=== PATIENT | male | born 1955 | race Caucasian/White ===

== ENCOUNTER 2021-10-16 07:47 | Inpatient (IN) | payer MEDICARE, MEDICAID ==
[2021-10-16] VITALS: BP 133/67
[~2021-10-16] VITALS: Ht 190.5 cm; Wt 125.8 kg
[2021-10-16 08:14] LABS: BASO % 0.3 % (0.0-1.0); EOS # 0.1 10*3/uL (0.0-0.4); EOS % 0.8 % (1.0-4.0); LYMPH # 2.1 10*3/uL (1.3-4.4); LYMPH % 17.2 % (27.0-41.0); MEAN CELL VOLUME 104.8 fl (80.0-94.0); MEAN CORPUSCULAR HGB 33.8 pg (27.0-31.0); MEAN CORPUSCULAR HGB CONC 32.3 g/dl (33.0-37.0); MEAN PLATELET VOLUME 8.6 fl (9.6-12.3); MONO # 0.9 10*3/uL (0.1-1.0); MONO % 7.2 % (3.0-9.0); NEUT # 8.8 10*3/uL (2.3-7.9); NEUT % 73.5 % (47.0-73.0); PLATELET COUNT AUTOMATED 536 10*3/uL (130-400); RED BLOOD COUNT 3.34 10*6/uL (4.50-5.90); RED CELL DISTRI WIDTH 14.7 % (0-14.5)
[2021-10-16] MEDS ORDERED: SPIRIVA RESPIMAT4 GM INH (08:18)
[2021-10-16] MEDS ORDERED: 24 HOUR ALLERG9.9 ML INH (08:19)
[2021-10-16] MEDS ORDERED: ASPIRIN ADULT L81 M2 PO (08:20)
[2021-10-16] MEDS ORDERED: ATENOLOL50 M1 PO (08:20)
[2021-10-16] MEDS ORDERED: GOOD SENSE ALLE10 M2 PO (08:21)
[2021-10-16] MEDS ORDERED: ZETIA10 MG PO (08:21)
[2021-10-16] MEDS ORDERED: SIMVASTATIN40 MG PO (08:22)
[2021-10-16] MEDS ORDERED: VALSARTAN160 MG PO (08:22)
[2021-10-16 08:23] LABS: ABG BASE EXCESS 2.6 mmol/L (-2.0-2.0); ARTERIAL BLOOD GAS PH 7.398 (7.35-7.45); ARTERIAL BLOOD GAS PO2 138.4 (80-90)
[2021-10-16] MEDS ORDERED: VITAMIN D350 MCG PO (08:25)
[2021-10-16] MEDS ORDERED: SUPER BETA PROSTATE (08:27)
[2021-10-16] MEDS ORDERED: ONE-DAILY MULT1 EAC1 PO (08:28)
[2021-10-16] MEDS ORDERED: GLUCOSAMINE CO1 EAC1 PO (08:28)
[2021-10-16 08:32] VITALS: BP 137/87
[2021-10-16 08:34] LABS: ALKALINE PHOSPHATASE 190 U/L (45-117); BUN 11 mg/dl (7-24); CHLORIDE 98 mmol/L (98-107); CREATININE 0.97 mg/dL (0.70-1.30); POTASSIUM 4.8 mmol/L (3.5-5.1); SGOT/AST 44 IU/L (3-35); SGPT/ALT 53 U/L (12-78); SODIUM 133 mmol/L (136-145); TOTAL PROTEIN 7.5 gm/dL (6.4-8.2)
[2021-10-16 11:06] VITALS: BP 127/77
[2021-10-16 12:28] VITALS: BP 143/93
[2021-10-16 16:00] VITALS: BP 133/67
[2021-10-17] VITALS: BP 133/67
[2021-10-17 06:18] LABS: ALKALINE PHOSPHATASE 153 U/L (45-117); BUN 12 mg/dl (7-24); CHLORIDE 102 mmol/L (98-107); CHOLESTEROL 119 mg/dL (<200); CREATININE 0.91 mg/dL (0.70-1.30); LDL CHOLESTEROL 63 mg/dL (9-159); POTASSIUM 4.6 mmol/L (3.5-5.1); SGOT/AST 26 IU/L (3-35); SGPT/ALT 41 U/L (12-78); SODIUM 136 mmol/L (136-145); TOTAL PROTEIN 6.9 gm/dL (6.4-8.2); TRIGLYCERIDES 102 mg/dl (<150)
[2021-10-17 06:22] LABS: BASO % 0.2 % (0.0-1.0); EOS # 0.1 10*3/uL (0.0-0.4); EOS % 0.8 % (1.0-4.0); HEMATOCRIT 33.2 % (42.0-52.0); LYMPH # 1.9 10*3/uL (1.3-4.4); LYMPH % 20.8 % (27.0-41.0); MEAN CELL VOLUME 106.4 fl (80.0-94.0); MEAN CORPUSCULAR HGB 34.6 pg (27.0-31.0); MEAN CORPUSCULAR HGB CONC 32.5 g/dl (33.0-37.0); MEAN PLATELET VOLUME 8.7 fl (9.6-12.3); MONO # 0.8 10*3/uL (0.1-1.0); MONO % 8.7 % (3.0-9.0); NEUT # 6.3 10*3/uL (2.3-7.9); NEUT % 68.3 % (47.0-73.0); PLATELET COUNT AUTOMATED 578 10*3/uL (130-400); RED BLOOD COUNT 3.12 10*6/uL (4.50-5.90); RED CELL DISTRI WIDTH 14.9 % (0-14.5); WHITE BLOOD COUNT 9.2 10*3/uL (4.8-10.8)
[2021-10-17 06:30] LABS: ACT PARTIAL THROMBO TIME 29.3 SECONDS (20.0-32.1)
[2021-10-17 08:00] VITALS: BP 145/83
[2021-10-17 09:03] LABS: ABG BASE EXCESS 1.4 mmol/L (-2.0-2.0); ARTERIAL BLOOD GAS PH 7.398 (7.35-7.45); ARTERIAL BLOOD GAS PO2 62.2 (80-90)
[2021-10-17 12:00] VITALS: BP 109/73
[2021-10-17 16:00] VITALS: BP 115/81
[2021-10-17 20:00] VITALS: BP 123/78
[2021-10-18] VITALS: BP 143/73
[2021-10-18 05:33] LABS: BUN 14 mg/dl (7-24); CHLORIDE 102 mmol/L (98-107); CREATININE 0.83 mg/dL (0.70-1.30); POTASSIUM 5.4 mmol/L (3.5-5.1); SODIUM 136 mmol/L (136-145)
[2021-10-18 06:29] LABS: HEMATOCRIT 33.4 % (42.0-52.0); MEAN CELL VOLUME 109.2 fl (80.0-94.0); MEAN CORPUSCULAR HGB 35.9 pg (27.0-31.0); MEAN CORPUSCULAR HGB CONC 32.9 g/dl (33.0-37.0); MEAN PLATELET VOLUME 8.9 fl (9.6-12.3); PLATELET COUNT AUTOMATED 632 10*3/uL (130-400); RED BLOOD COUNT 3.06 10*6/uL (4.50-5.90); RED CELL DISTRI WIDTH 14.8 % (0-14.5); WHITE BLOOD COUNT 9.4 10*3/uL (4.8-10.8)
[2021-10-18 06:30] LABS: MANUAL DIFF REFLEX YES
[2021-10-18 07:21] LABS: ABG BASE EXCESS 4.2 mmol/L (-2.0-2.0); ARTERIAL BLOOD GAS PH 7.376 (7.35-7.45); ARTERIAL BLOOD GAS PO2 77.8 (80-90)
[2021-10-18 07:24] LABS: PLATELET SUFFICIENCY HIGH (NORMAL); TOTAL CELLS COUNTED 100 #CELLS
[2021-10-18 08:00] VITALS: BP 123/96
[2021-10-18 12:00] VITALS: BP 124/77
[2021-10-18 16:00] VITALS: BP 128/72
[2021-10-18 20:00] VITALS: BP 136/82
[2021-10-19] VITALS: BP 123/77
[2021-10-19 05:29] LABS: BUN 17 mg/dl (7-24); CHLORIDE 100 mmol/L (98-107); CREATININE 0.84 mg/dL (0.70-1.30); POTASSIUM 4.9 mmol/L (3.5-5.1); SODIUM 135 mmol/L (136-145)
[2021-10-19 06:05] LABS: MEAN CELL VOLUME 108.3 fl (80.0-94.0); MEAN CORPUSCULAR HGB 35.4 pg (27.0-31.0); MEAN CORPUSCULAR HGB CONC 32.6 g/dl (33.0-37.0); MEAN PLATELET VOLUME 8.7 fl (9.6-12.3); PLATELET COUNT AUTOMATED 720 10*3/uL (130-400); RED BLOOD COUNT 3.14 10*6/uL (4.50-5.90); RED CELL DISTRI WIDTH 14.6 % (0-14.5); WHITE BLOOD COUNT 15.2 10*3/uL (4.8-10.8)
[2021-10-19 06:11] LABS: MANUAL DIFF REFLEX YES
[2021-10-19 06:49] LABS: TOTAL CELLS COUNTED 100 #CELLS
[2021-10-19 06:50] LABS: PLATELET SUFFICIENCY HIGH (NORMAL)
[2021-10-19 08:00] VITALS: BP 141/81
[2021-10-19 12:00] VITALS: BP 112/66
[2021-10-19 16:00] VITALS: BP 132/76
[2021-10-19 20:00] VITALS: BP 136/69
[2021-10-20] VITALS: BP 137/76
[2021-10-20 04:00] VITALS: BP 144/78
[2021-10-20 06:30] LABS: HEMATOCRIT 36.7 % (42.0-52.0); MEAN CELL VOLUME 108.3 fl (80.0-94.0); MEAN CORPUSCULAR HGB 34.5 pg (27.0-31.0); MEAN CORPUSCULAR HGB CONC 31.9 g/dl (33.0-37.0); MEAN PLATELET VOLUME 8.5 fl (9.6-12.3); PLATELET COUNT AUTOMATED 677 10*3/uL (130-400); RED BLOOD COUNT 3.39 10*6/uL (4.50-5.90); RED CELL DISTRI WIDTH 14.5 % (0-14.5); WHITE BLOOD COUNT 14.7 10*3/uL (4.8-10.8)
[2021-10-20 06:52] LABS: BUN 18 mg/dl (7-24); CHLORIDE 102 mmol/L (98-107); CREATININE 0.74 mg/dL (0.70-1.30); SODIUM 138 mmol/L (136-145)
[2021-10-20 07:13] LABS: MANUAL DIFF REFLEX YES
[2021-10-20 08:00] VITALS: BP 124/80
[2021-10-20 08:02] LABS: PLATELET SUFFICIENCY HIGH (NORMAL); POLYCHROMASIA SLIGHT; ROULEAUX SLIGHT; TOTAL CELLS COUNTED 100 #CELLS
[2021-10-20 12:00] VITALS: BP 113/66
[2021-10-20 16:00] VITALS: BP 121/75
[2021-10-20 20:00] VITALS: BP 109/66
[2021-10-21] VITALS: BP 117/67
[2021-10-21 07:42] LABS: BASO % 0.1 % (0.0-1.0); EOS % 0.1 % (1.0-4.0); HEMATOCRIT 35.8 % (42.0-52.0); LYMPH # 1.1 10*3/uL (1.3-4.4); LYMPH % 6.1 % (27.0-41.0); MEAN CELL VOLUME 105.3 fl (80.0-94.0); MEAN CORPUSCULAR HGB 33.8 pg (27.0-31.0); MEAN CORPUSCULAR HGB CONC 32.1 g/dl (33.0-37.0); MEAN PLATELET VOLUME 8.2 fl (9.6-12.3); MONO # 0.7 10*3/uL (0.1-1.0); MONO % 4.2 % (3.0-9.0); NEUT # 15.4 10*3/uL (2.3-7.9); NEUT % 88.7 % (47.0-73.0); PLATELET COUNT AUTOMATED 716 10*3/uL (130-400); RED CELL DISTRI WIDTH 14.4 % (0-14.5); WHITE BLOOD COUNT 17.3 10*3/uL (4.8-10.8)
[2021-10-21 07:54] LABS: BUN 21 mg/dl (7-24); CHLORIDE 100 mmol/L (98-107); CREATININE 0.77 mg/dL (0.70-1.30); POTASSIUM 4.7 mmol/L (3.5-5.1); SODIUM 135 mmol/L (136-145)
[2021-10-21 08:00] VITALS: BP 136/82
[2021-10-21] MEDS ORDERED: OMNICEF300 MG PO (11:29)
[2021-10-21] MEDS ORDERED: LOSARTAN POTASS50 M1 PO (11:29)
[2021-10-21] MEDS ORDERED: LASIX40 MG PO (11:29)
[2021-10-21] MEDS ORDERED: PREDNISONE10 MG PO (11:29)
[2021-10-21] MEDS ORDERED: ZITHROMAX250 MG PO (11:29)
== END 2021-10-21 14:16 | DRG 871 ==
LOC: ED 07:47 → EDHOLD 10:27 → 4E 15:29
PROVIDERS: Emergency Medicine; Hospitalist; Internal Medicine; ADMIT Internal Medicine; ATTEND Internal Medicine
PROC: 5A09357 Assistance with Respiratory Ventilation, Less than 24 Consecutive Hours, Continuous Positive Airway Pressure (ICD-10-PCS; principal; 2021-10-16)
PROC: 5A09357 Assistance with Respiratory Ventilation, Less than 24 Consecutive Hours, Continuous Positive Airway Pressure (ICD-10-PCS; 2021-10-17)
PROC: 5A0935A Assistance with Respiratory Ventilation, Less than 24 Consecutive Hours, High Flow/Velocity Cannula (ICD-10-PCS; 2021-10-17)
PROC: 5A09357 Assistance with Respiratory Ventilation, Less than 24 Consecutive Hours, Continuous Positive Airway Pressure (ICD-10-PCS; 2021-10-18)
PROC: 5A0935A Assistance with Respiratory Ventilation, Less than 24 Consecutive Hours, High Flow/Velocity Cannula (ICD-10-PCS; 2021-10-18)
PROC: 5A09357 Assistance with Respiratory Ventilation, Less than 24 Consecutive Hours, Continuous Positive Airway Pressure (ICD-10-PCS; 2021-10-19)
PROC: 5A0935A Assistance with Respiratory Ventilation, Less than 24 Consecutive Hours, High Flow/Velocity Cannula (ICD-10-PCS; 2021-10-19)
PROC: 5A0935A Assistance with Respiratory Ventilation, Less than 24 Consecutive Hours, High Flow/Velocity Cannula (ICD-10-PCS; 2021-10-20)
PROC: 5A0935A Assistance with Respiratory Ventilation, Less than 24 Consecutive Hours, High Flow/Velocity Cannula (ICD-10-PCS; 2021-10-21)
DX: A41.9 Sepsis, unspecified organism (principal); J18.9 Pneumonia, unspecified organism; J96.01 Acute respiratory failure with hypoxia; E43 Unspecified severe protein-calorie malnutrition; E87.1 Hypo-osmolality and hyponatremia; J44.1 Chronic obstructive pulmonary disease with (acute) exacerbation; F10.230 Alcohol dependence with withdrawal, uncomplicated; J44.0 Chronic obstructive pulmonary disease with (acute) lower respiratory infection; D53.9 Nutritional anemia, unspecified; D75.839 Thrombocytosis, unspecified; R73.9 Hyperglycemia, unspecified; R74.01 Elevation of levels of liver transaminase levels; I10 Essential (primary) hypertension; E78.5 Hyperlipidemia, unspecified; F17.210 Nicotine dependence, cigarettes, uncomplicated; R65.20 Severe sepsis without septic shock; Z20.822 Contact with and (suspected) exposure to COVID-19; Z68.34 Body mass index [BMI] 34.0-34.9, adult